=== PATIENT | female | born 1960 | race African-American/Black ===

== ENCOUNTER 2017-12-09 01:13 | Emergency (ER) | payer MEDICAID ==
[~2017-12-09] VITALS: Ht 182.9 cm; Wt 81.6 kg
[2017-12-09 01:17] VITALS: BP 90/73
[2017-12-09 01:50] LABS: Hemoglobin 14.9 g/dL (12.2-16.2); Mean Corpuscular Hemoglobin 25.8 pg (28.0-32.0); Red Cell Distribution Width 13.9 % (11.8-14.3)
[2017-12-09 01:52] LABS: Mean Corpuscular Hgb Conc. 32.4 g/dL (32.0-36.0); Mean Corpuscular Volume 79.5 fL (80.0-100.0); Platelet Count (auto) 289 10^3/uL (140-450); Red Blood Cells 5.79 10^6/uL (4.0-5.20)
[2017-12-09 01:54] LABS: Band Neutrophils % (manual) 0; Basophils % (manual) 0 (0.0-2.0); Blast Cells 0; Eosinophils % (manual) 0 (0-7); Metamyelocytes % 0; Myelocytes % 0; Promyelocytes % 0
[2017-12-09 02:08] LABS: Urine Bacteria FEW /hpf (None Seen); Urine Blood 2+ /uL (Negative); Urine Mucus FEW (None Seen); Urine Specific Gravity 1.014 (1.001-1.035); Urine WBC 5 /hpf (0 - 5)
[2017-12-09 02:10] LABS: Albumin 3.5 g/dL (3.4-5.0); BUN/Creatinine Ratio 7.6
[2017-12-09 02:13] LABS: Bilirubin, Total 0.4 mg/dL (0.2-1.0); Total Protein 8.7 g/dL (6.4-8.2)
[2017-12-09 02:19] LABS: Lymphocytes % (manual) 15 (10.0-50.0); Monocytes % (manual) 3 (0-12); Reactive Lymphocytes 2
== END 2017-12-09 03:02 | disposition left against medical advice (07) ==
LOC: ER 01:18
DX: D57.1 Sickle-cell disease without crisis (principal); Z53.21 Procedure and treatment not carried out due to patient leaving prior to being seen by health care provider
CPT/HCPCS: 36415; 71045; 80053; 81001; 85007; 85027

== ENCOUNTER 2022-02-05 11:53 | Emergency (ER) | payer MEDICAID ==
[~2022-02-05] VITALS: Ht 182.9 cm; Wt 93.0 kg
[2022-02-05 11:55] VITALS: BP 153/111
[2022-02-05] MEDS ORDERED: ONDANSETRON HCL 4 MG/2 ML VIAL IV ONE (12:15)
[2022-02-05] MEDS ORDERED: MORPHINE SULFATE 4 MG/ML SYR/VIAL IV ONE (12:15)
[2022-02-05 12:26] LABS: Hemoglobin 13.3 g/dL (12.2-16.2)
[2022-02-05 12:28] LABS: Hematocrit 41.4 % (36.0-46.0); Mean Corpuscular Hgb Conc. 32.3 g/dL (32.0-36.0); Mean Corpuscular Volume 80.5 fL (80.0-100.0); Red Blood Cells 5.14 10^6/uL (4.0-5.20); Red Cell Distribution Width 14.4 % (11.8-14.3); White Blood Cell 7.7 10^3/uL (4.4-10.8)
[2022-02-05 12:35] LABS: Band Neutrophils % (manual) 0; Basophils % (manual) 0 (0.0-2.0); Blast Cells 0; Metamyelocytes % 0; Promyelocytes % 0; Reactive Lymphocytes 0
[2022-02-05 12:51] LABS: Albumin 3.6 g/dL (3.4-5.0); BUN/Creatinine Ratio 11.5; Calcium 9.4 mg/dL (8.5-10.1); Potassium 4.5 mmol/L (3.5-5.1)
[2022-02-05 12:53] LABS: Bilirubin, Total 0.3 mg/dL (0.2-1.0); Total Protein 7.5 g/dL (6.4-8.2)
[2022-02-05 13:17] LABS: Partial Thromboplastin Time 27.9 sec (24.6-33.4)
[2022-02-05] MEDS ORDERED: IOHEXOL 350 MG/ML 100ML IJ ONE (13:20)
[2022-02-05] MEDS ORDERED: TRAM-297 PO (13:56)
[2022-02-05] MEDS ORDERED: traMADol HCL 50 MG TAB PO ONE (14:00)
[2022-02-05 14:07] LABS: Eosinophils % (manual) 1 (0-7); Lymphocytes % (manual) 36 (10.0-50.0); Monocytes % (manual) 5 (0-12); Myelocytes % 1
== END 2022-02-05 15:35 | disposition home or self-care (01) ==
LOC: ER 11:53
DX: R07.89 Other chest pain (principal); G89.29 Other chronic pain; M54.9 Dorsalgia, unspecified; F17.210 Nicotine dependence, cigarettes, uncomplicated
CPT/HCPCS: 36415; 71045; 71275; 80053; 83880; 84484; 85007; 85027; 85379; 85610; 85730; 93005; 99285; Q9967

== ENCOUNTER 2022-02-26 17:49 | Emergency (ER) | payer MEDICAID ==
[~2022-02-26 17:49] MED LIST: TRAM-297 PO
[2022-02-26] MEDS ORDERED: KETOROLAC TROMETH 30 MG/ML 1ML VIAL IM ONE (18:45)
[2022-02-26] MEDS ORDERED: ALBUTEROL SULF 2.5 MG/0.5ML(0.5%) NEB SOLN NEB ONE (18:45)
[2022-02-26] MEDS ORDERED: ALBU108A5 IN (20:10)
[2022-02-26 22:21] VITALS: BP 155/85
== END 2022-02-26 22:30 | disposition home or self-care (01) ==
LOC: ER 17:49
DX: S93.402A Sprain of unspecified ligament of left ankle, initial encounter (principal); F17.210 Nicotine dependence, cigarettes, uncomplicated; R06.02 Shortness of breath; F12.90 Cannabis use, unspecified, uncomplicated; Z76.0 Encounter for issue of repeat prescription; Z98.51 Tubal ligation status; X58.XXXA Exposure to other specified factors, initial encounter; Y93.01 Activity, walking, marching and hiking; Y92.89 Other specified places as the place of occurrence of the external cause; Y99.8 Other external cause status
CPT/HCPCS: 73610; 73630; 94640; 96372; 99284; J1885

== ENCOUNTER 2023-09-16 12:28 | Emergency (ER) | payer MEDICAID ==
[~2023-09-16] VITALS: Ht 182.9 cm; Wt 93.1 kg
[~2023-09-16 12:28] MED LIST changes: +ALBU108A5 IN
[2023-09-16] MEDS: CYCLOBENZAPRINE HCL 10 MG TAB PO ONE (14:17)
[2023-09-16] MEDS: KETOROLAC TROMETH 30 MG/ML 1ML VIAL IM ONE (14:17)
[2023-09-16 14:24] VITALS: PULSE 74; RESP 19; O2SAT 96
[2023-09-16] MEDS ORDERED: CYCL-611 PO (15:33)
[2023-09-16 16:14] VITALS: BP 152/101; PULSE 58; RESP 16; TEMP 97.1; O2SAT 99
== END 2023-09-16 16:26 | disposition home or self-care (01) ==
LOC: ER 12:28
DX: S33.8XXA Sprain of other parts of lumbar spine and pelvis, initial encounter (principal); R20.2 Paresthesia of skin; M79.604 Pain in right leg; F12.10 Cannabis abuse, uncomplicated; F17.210 Nicotine dependence, cigarettes, uncomplicated; Z98.51 Tubal ligation status; X58.XXXA Exposure to other specified factors, initial encounter; Y93.89 Activity, other specified; Y92.89 Other specified places as the place of occurrence of the external cause; Y99.8 Other external cause status
CPT/HCPCS: 73502; 73562; 93971; 96372; 99285; J1885

== ENCOUNTER 2025-01-26 12:14 | Emergency (ER) | payer MEDICAID ==
[~2025-01-26] VITALS: Ht 182.9 cm; Wt 87.0 kg
[~2025-01-26 12:14] MED LIST changes: +CYCL-611 PO
[2025-01-26] MEDS: HYDROcodone-ACET 10/325MG TAB PO ONE (13:32)
--- NOTE | 2025-01-26 13:46 | ED.PDOC ---
Musculoskeletal HPI Comments A 64 YEAR OLD FEMALE PRESENTS TO THE ED WITH COMPLAINT OF RIGHT KNEE PAIN AND SWELLING. PATIENT STATES SHE HAS BEEN EXPERIENCING RIGHT KNEE PAIN AND SWELLING FOR THE PAST 2 WEEKS. PATIENT REPORTS HER PAIN IS WORSE WITH MOVEMENT. PATIENT DENIES INJURY TO THE AFFECTED AREA, FEVER, CHILLS, SHORTNESS OF BREATH, CHEST PAIN, ABDOMINAL PAIN, NAUSEA, VOMITING, HEADACHE, OR OTHER COMPLAINTS. NO OTHER SYMPTOMS OR MODIFYING FACTORS AT THIS TIME. PATIENT IS ALERT, ORIENTED X 4, AND HAS STEADY GAIT. Chief Complaint: Lower Extremity Time Seen by MD: 12:31 Primary Care Provider: Amilcar Briscoe Notes: Nurses Notes, Medications, Allergies Allergies: Coded Allergies: NO KNOWN ALLERGIES (Unverified , 12/09/17) Home Meds Active Scripts Prednisone (Prednisone) 20 Mg Tab, 40 MG PO DAILY, #20 TAB Prov:JOHANNA PEREZ 01/26/25 Cyclobenzaprine HCl (Cyclobenzaprine Hydrochlo) 10 Mg Tab, 10 MG PO TID PRN for 5 Days, #15 TAB Prov:ESTRELLITA MOON MD 09/16/23 Albuterol Sulfate (Albuterol Sulfate Hfa) 108 Mcg/Act Aer, 108 MCG IN QID PRN, #1 AER Prov:MAHAMED LOPEZ 02/26/22 Tramadol Hcl (Ultram) 50 Mg Tab, 1 TAB PO Q6HR, #30 TAB Prov:JARRET MCNAIR MD 02/05/22 Mode of Arrival: Ambulatory Location: Right Extremity Location: Knee Timing: Weeks Prehospital treatment: None Severity: Moderate Able to Move Extremity: Yes Bear Weight: Limited Pain: Moderate Mechanism: No Trauma, Spontaneous Circumstances: Spontaneous Onset of Symptoms: Spontaneous Symptoms: Swelling, Pain DVT Risk Factors: NONE Last Tetanus: UTD, Unknown Associated signs and symptoms: Knee pain Past Medical History PAST MEDICAL HISTORY: HTN Past Medical History (Other): CHRONIC LOWER BACK PAIN Surgical History: Tubal Ligation PROPERTY CLAIMS ADJUSTER History: Denies all PROPERTY CLAIMS ADJUSTER Hx Family History Family History: Reviewed,noncontributory to illness, Family hx of DM Social History Smoker: Cigarettes Alcohol: Denies ETOH Use Drugs: Marijuana Lives In: Home Constitutional: denies: chills, diaphoresis, fatigue, fever, malaise, sweats, weakness, others EENTM: denies: blurred vision, double vision, ear bleeding, ear discharge, ear drainage, ear pain, ear ringing, eye pain, eye redness, hearing loss, mouth pain, mouth swelling, nasal discharge, nose bleeding, nose congestion, nose pain, photophobia, tearing, throat pain, throat swelling, voice changes, others Respiratory: denies: cough, hemoptysis, orthopnea, SOB at rest, shortness of breath, SOB with excertion, stridor, wheezing, others Cardiovascular: denies: chest pain, dizzy spells, diaphoresis, Dyspnea on exertion, edema, irregular heart beat, left arm pain, lightheadedness, palpitations, PND, syncope, others Gastrointestinal: denies: abdomen distended, abdominal pain, blood streaked bowels, constipated, diarrhea, dysphagia, difficulty swallowing, hematemesis, melena, nausea, poor appetite, poor fluid intake, rectal bleeding, rectal pain, vomiting, others Genitourinary: denies: abnormal vagina bleeding, burning, dyspareunia, dysuria, flank pain, frequency, hematuria, incontinence, pain, , vagina discharge, urgency, others Neurological: denies: dizziness, fainting, headache, left sided numbness, left sided weakness, numbness, paresthesia, pre-existing deficit, right sided numbness, right sided weakness, seizure, speech problems, tingling, tremors, weakness, others Musculoskeletal: reports: joint pain, joint swelling, others (RIGHT KNEE PAIN); denies: back pain, gout, muscle pain, muscle stiffness, neck pain Integumetry: denies: bruises, change in color, change in hair/nails, dryness, laceration, lesions, lumps, rash, wounds, others Allergic/Immunocompromised: denies: Difficulty Healing, Frequent Infections, Hives, Itching, others Hematologic/Lymphatic: denies: anemia, blood clots, easy bleeding, easy bruising, swollen glands, others Endocrine: denies: excessive hunger, excessive sweating, excessive thirst, excessive urination, flushing, intolerance to cold, intolerance to heat, unexplained weight gain, unexplained weight loss, others Psychiatric: denies: anxiety, bipolar disorder, depression, hopeless, panic disorder, schizophrenia, sleepless, suicidal, others All Other Systems: Reviewed and Negative Physical Exam General Appearance: No Apparent Distress, Normal HEENT: Normal ENT Inspection, PERRL/EOMI, Pharynx Normal, TMs Normal Neck: Full Range of Motion, Non-Tender, Normal, Normal Inspection Respiratory: Chest Non-Tender, Lungs Clear, No Accessory Muscle Use, No Respiratory Distress, Normal Breath Sounds Cardiovascular: No Edema, No JVD, No Murmur, No Gallop, Normal Peripheral Pulses, Regular Rate/Rhythm Breast Exam: Deferred Gastrointestinal: No Organomegaly, Non Tender, No Pulsatile Mass, Normal Bowel Sounds, Soft Genitalia: Deferred Pelvic: Deferred Rectal: Deferred Extremities: Decreased range of motion, No calf tenderness, Normal capillary r efill, No pedal edema, Tender (AND MILD SWELLING AND EFFUSION ON RIGHT KNEE, NO BONY TENDERNESS AND DEFORMITY. ) Musculoskeletal : Apperance: Normal Neurologic: Alert, truck service technician II-XII nml as Tested, No Motor Deficits, Normal Affect, Normal Mood, No Sensory Deficits Cerebellar Function: Normal Reflexes: Normal Skin: Dry, Normal Color, Warm Peripheral Pulses: 2+ carotid (R), 2+ carotid (L), 2+ dorsalis pedis (R), 2+ dorsalis pedis (L) Lymphatic: No Adenopathy Was a procedure done? Was a procedure done?: No Differential Diagnosis EXT Differential Diagnosis: Sprain, DJD, Strain, Arthritis, Bursitis X-Ray, Labs, Meds, VS Vital Signs Date Time Temp Pulse Resp B/P (MAP) Pulse Ox O2 Delivery O2 Flow Rate FiO2 01/26/25 12:17 97.7 70 18 148/72 96 97.7 Current Medications Medications (Trade) Dose Ordered Sig/Nikki Route Start Time Stop Time Status Last Admin Acetaminophen/ Hydrocodone Bitart ([place] 10/325MG Tab) 1 tab ONCE ONCE PO 01/26/25 13:30 01/26/25 13:31 DC 01/26/25 13:32 X-Ray, Labs, Meds, VS Comment EXTERNAL MEDICAL RECORDS REVIEWED: [NONE] INDEPENDENT HISTORIANS: [NONE] SOCIAL DETERMINANTS OF HEALTH: [NONE] LABS ORDERED: NONE REVIEWED AND INTERPRETED RESULTS: NONE IMAGING ORDERED: XR KNEE RT: [INTERPRETED BY ME. NO ACUTE FINDINGS. BONE SPUR VISUALIZED. NO FRACTURES OR DISLOCATION. PENDING RADIOLOGIST REPORT.] TREATMENTS ORDERED: [place] 10/325 MG PO PROCEDURES PERFORMED: NONE CRITICAL CARE TIME: NONE I HAVE DISCUSSED THE PATIENT WITH THE ATTENDING PHYSICIAN DR. MCNAIR AND HE AGREES WITH THE PATIENT'S PLAN OF CARE AND DISPOSITION. BASED ON HISTORY OF PRESENT ILLNESS, AND PHYSICAL EXAM, PATIENT WILL BE DISCHARGED HOME. DISCUSSED PLAN FOR DISCHARGE HOME WITH RX [PREDNISONE]. MEDICATION WARNINGS GIVEN. SHARED DECISION MAKING: PATIENT INSTRUCTED TO FOLLOW UP WITH PRIMARY CARE PROVIDER IN 1-2 DAYS FOR RE-EVALUATION OF SYMPTOMS. PATIENT VERBALIZES UNDERSTANDING TO RETURN TO ED FOR NEW OR WORSENING SYMPTOMS OR IF FOLLOW UP WITH PCP CANNOT BE OBTAINED. PATIENT FEELS COMFORTABLE GOING HOME AT THIS TIME. ALL QUESTIONS ADDRESSED AT TIME OF DISCHARGE. Images Reviewed?: Images reviewed and evaluated by me Time of 1ST Reevaluation: 14:00 Reevaluation 1ST: Improved Patient Education/Counseling: Diagnosis, Treatment, Need For Follow Up Family Education/Counseling: Diagnosis, Treatment, Need For Follow Up Medical Screening: No EMC Exist At This Time Departure 1 Departure Time of Disposition: 14:00 Impression: Primary Impression: Internal derangement of right knee Additional Impression: Bone spur Disposition: 01 HOME / SELF CARE / HOMELESS Condition: Stable Additional Instructions: FOLLOW-UP WITH PCP IN 1 TO 2 DAYS PER REPORT THE LITERACY EDUCATION PROFESSOR. TAKE MEDICATIONS PRESCRIBED. RETURN TO ED FOR ANY NEW OR WORSENING SYMPTOMS. e-Prescriptions Prednisone (Prednisone) 20 Mg Tab 40 MG PO DAILY, #20 TAB Prov: JOHANNA PEREZ 01/26/25 Discharged With: Self Critical Care Note Critical Care Time?: No Stability Stability form required: No I personally scribed for JOHANNA PEREZ ([email or web address]) on 01/26/25 at 13:46. Electronically submitted by Yohan Gilman ([email or web address]). I personally scribed for JOHANNA PEREZ ([email or web address]) on 01/26/25 at 13:55. Electronically submitted by Yohan Gilman ([email or web address]). JOHANNA PEREZ Jan 26, 2025 13:46
[2025-01-26] MEDS ORDERED: HYDR-4798 PO (13:53)
[2025-01-26 13:57] VITALS: BP 161/110; PULSE 64; RESP 17; TEMP 97.9; O2SAT 100
[2025-01-26] MEDS ORDERED: PRED20TA2 PO (13:57)
--- NOTE | 2025-01-26 14:04 | DVH ---
CLINICAL INDICATION: PAIN, NO INJURY TECHNIQUE: XY R KNEE 3V XRAY Comparison: XY R KNEE 3V XRAY on DOS: 09/16/23 FINDINGS/IMPRESSION: : There is no evidence of acute fracture or dislocation. Large joint effusion.
== END 2025-01-26 14:09 | disposition home or self-care (01) ==
LOC: ER 12:14
DX: M23.91 Unspecified internal derangement of right knee (principal); M77.9 Enthesopathy, unspecified; F12.90 Cannabis use, unspecified, uncomplicated; F17.210 Nicotine dependence, cigarettes, uncomplicated; I10 Essential (primary) hypertension; Z79.899 Other long term (current) drug therapy; Z98.51 Tubal ligation status; Z79.52 Long term (current) use of systemic steroids
CPT/HCPCS: 73562